=== PATIENT | male | born 1960 | race Hispanic/Latino ===

== ENCOUNTER 2019-08-19 10:27 | Emergency (ER) | payer SELFPAY ==
[2019-08-19 10:40] VITALS: BP 138/77
--- NOTE | 2019-08-19 13:55 | Event Note ---
ED Screening Note Date of service: 08/19/19 Time: 13:51 ED Screening Note: This is a 58 y.o. M. that presents to the ER with pain from left shoulder blade to left chest. Patient went to [facility] and diagnosed with shingles. States he was sent here because WBCs 27. PMH of Diabetes type 1 and CAD. This initial assessment/diagnostic orders/clinical plan/treatment(s) is/are subject to change based on patients health status, clinical progression and re- assessment by fellow clinical providers in the ED. Further treatment and workup at subsequent clinical providers discretion. Patient/guardian urged not to elope from the ED as their condition may be serious if not clinically assessed and managed. Initial orders include: Accucheck 290
== END 2019-08-19 14:30 | disposition left against medical advice (07) ==
LOC: ED 10:27
DX: B02.8 Zoster with other complications (principal); Z53.21 Procedure and treatment not carried out due to patient leaving prior to being seen by health care provider
CPT/HCPCS: 82962

== ENCOUNTER 2019-08-23 12:14 | Inpatient (IN) | payer OTHER ==
--- NOTE | 2019-08-23 12:27 | Event Note ---
ED Screening Note Date of service: 08/23/19 Time: 12:22 ED Screening Note: 58 y o male sent from clinic for generalized pain with elevated wbc and fever no fever in triage took antivirals 08/06/19- WBC 27 This initial assessment/diagnostic orders/clinical plan/treatment(s) is/are subject to change based on patients health status, clinical progression and re- assessment by fellow clinical providers in the ED. Further treatment and workup at subsequent clinical providers discretion. Patient/guardian urged not to elope from the ED as their condition may be serious if not clinically assessed and managed. Initial orders include: labs
[2019-08-23 12:54] LABS: Hematocrit 41.7 % (35.5-45.6); Hemoglobin 14.1 gm/dl (11.8-15.2); Mean Corpuscular HGB Conc 34 % (32-34); Mean Corpuscular Volume 99 fl (84-94); Platelet Count 767 K/mm3 (140-440); Red Blood Count 4.22 M/mm3 (3.65-5.03); Red Cell Distribution Width 15.3 % (13.2-15.2)
[2019-08-23 13:58] LABS: Alanine Aminotransferase 51 units/L (7-56); Albumin 3.9 g/dL (3.9-5); BUN/Creatinine Ratio 16; Blood Urea Nitrogen 11 mg/dL (9-20); Calcium 9.4 mg/dL (8.4-10.2); Hemolysis Index 10
[2019-08-23 14:51] LABS: Basophils % (Manual) 0 % (0.0-1.8); Eosinophils % (Manual) 0 % (0.0-4.3); Total Cells Counted 100
[2019-08-23 14:52] LABS: Anisocytosis Few; Giant Platelets Rare; Large Platelets Rare; Platelet Clumps Rare; Platelet Estimate Consistent w Auto; Poikilocytosis Few
[2019-08-23 15:33] LABS: Bilirubin,Urine NEG (Negative); Blood,Urine NEG (Negative); Color,Urine Yellow (Yellow); Hyaline Casts,Urine 2 /LPF; Protein,Urine <15 mg/dL mg/dL (Negative); Urobilinogen,Urine < 2.0 mg/dL (<2.0)
--- NOTE | 2019-08-23 16:22 | Emergency Department Report ---
ED Recheck HPI - General Chief Complaint: Pain General Stated Complaint: ABN LAB/LT SIDE PAIN Time Seen by Provider: 08/23/19 16:15 Source: patient Mode of arrival: Ambulatory Limitations: Physical Limitation - History of Present Illness Initial Comments: Patient is a 58-year-old male presents to emergency room with complaints of abnormal labs. Patient was sent here by his primary care for a elevated white blood cell count at 27.1. Patient states he had his labs drawn on August 05. Patient states he just received a call 3 days ago. Patient denies any chest pain. Patient denies headache. Patient complains of left posterior arm pain over the left tricep. Patient states his tricep pain has been going on for 3 months. Patient states his abnormal labs are a new finding. Patient states his arm pain is a 10 out of 10. Patient states the arm pain is not radiating. Patient states it's a burning sensation. MD Complaint: abnormal lab -: Sudden Returns Today for: CBOAL Symptoms Since Prior Visit: no new symptoms Context: called for abnorm lab res Associated Symptoms: none - Related Data Home Medications Medication Instructions Recorded Confirmed Last Taken Aspirin [Aspirin BABY CHEW TAB] 81 mg PO QDAY 08/23/19 08/23/19 Unknown Clopidogrel [Plavix] 75 mg PO QDAY 08/23/19 08/23/19 Unknown Gabapentin 300 mg PO TID 08/23/19 08/23/19 Unknown Insulin Detemir 100 units IM BID 08/23/19 08/23/19 Unknown Insulin NPH Human Isophane 100 units IM BID 08/23/19 08/23/19 Unknown Insulin Regular, Human 100 units IM TID 08/23/19 08/23/19 Unknown Metoprolol Tartrate 50 mg PO BID 08/23/19 08/23/19 Unknown Nitroglycerin 0.6 mg SUBLINGUAL PRN 08/23/19 08/23/19 Unknown Allergies Allergy/AdvReac Type Severity Reaction Status Date / Time [id number] Reductase AdvReac Unknown Verified 08/23/19 12:15 Inhibitor ED Review of Systems ROS: Stated complaint: ABN LAB/LT SIDE PAIN Other details as noted in HPI Constitutional: denies: chills, fever Eyes: denies: eye pain, eye discharge, vision change ENT: denies: ear pain, throat pain Respiratory: denies: cough, shortness of breath, wheezing Cardiovascular: denies: chest pain, palpitations Endocrine: no symptoms reported Gastrointestinal: denies: abdominal pain, nausea, diarrhea Genitourinary: denies: urgency, dysuria Musculoskeletal: denies: back pain, joint swelling, arthralgia Skin: denies: rash, lesions Neurological: denies: headache, weakness, paresthesias Psychiatric: denies: anxiety, depression Hematological/Lymphatic: denies: easy bleeding, easy bruising ED Past Medical Hx - Past Medical History Previous Medical History?: Yes Hx Diabetes: Yes Additional medical history: CAD - Surgical History Past Surgical History?: Yes Hx Open Heart Surgery: Yes - Family History Family history: no significant - Social History Smoking Status: Current Every Day Smoker Substance Use Type: Alcohol - Medications Home Medications: Home Medications Medication Instructions Recorded Confirmed Last Taken Type Aspirin [Aspirin BABY CHEW TAB] 81 mg PO QDAY 08/23/19 08/23/19 Unknown History Clopidogrel [Plavix] 75 mg PO QDAY 08/23/19 08/23/19 Unknown History Gabapentin 300 mg PO TID 08/23/19 08/23/19 Unknown History Insulin Detemir 100 units IM BID 08/23/19 08/23/19 Unknown History Insulin NPH Human Isophane 100 units IM BID 08/23/19 08/23/19 Unknown History Insulin Regular, Human 100 units IM TID 08/23/19 08/23/19 Unknown History Metoprolol Tartrate 50 mg PO BID 08/23/19 08/23/19 Unknown History Nitroglycerin 0.6 mg SUBLINGUAL PRN 08/23/19 08/23/19 Unknown History ED Physical Exam - General Limitations: Physical Limitation General appearance: alert, in no apparent distress - Head Head exam: Present: atraumatic, normocephalic - Eye Eye exam: Present: normal appearance - ENT ENT exam: Present: mucous membranes moist - Neck Neck exam: Present: normal inspection - Respiratory Respiratory exam: Present: normal lung sounds bilaterally. Absent: respiratory distress - Cardiovascular Cardiovascular Exam: Present: regular rate, normal rhythm. Absent: systolic murmur, diastolic murmur, rubs, gallop - GI/Abdominal GI/Abdominal exam: Present: soft, normal bowel sounds - Rectal Rectal exam: Present: deferred - Extremities Exam Extremities exam: Present: normal inspection, tenderness (tenderness over left tricep. No deformity noted.) - Back Exam Back exam: Present: normal inspection - Neurological Exam Neurological exam: Present: alert, oriented X3 - Psychiatric Psychiatric exam: Present: normal affect, normal mood - Skin Skin exam: Present: warm, dry, intact, normal color. Absent: rash ED Course Vital Signs 08/23/19 12:22 Temperature 98.5 F Pulse Rate 86 Respiratory 22 Rate Blood Pressure 149/66 O2 Sat by Pulse 98 Oximetry - Reevaluation(s) Reevaluation #1: I discussed all results with patient. I discussed Medicare patient. Patient agrees with plan of care and admission. Patient admitted to the hospitalist service. 08/23/19 17:33 - Consultations Consultation #1: Hematology paged 08/23/19 16:22 I discussed the case with rouge miller, Dr. Andersen. Patient admitted to the hospitalist service. Dr. Andersen wants a pathology peripheral smear, LDH and uric acid ordered 08/23/19 17:33 Consultation #2: Hospitalist consulted. Hospitalist admit patient. Bridging orders placed. 08/23/19 17:32 ED Recheck MDM - Core Measures AMI Core Measures Followed: Yes Measure Exclusions: not indicated - Differential Diagnosis Recheck of Abnormal Lab, Admission for Abnormal [place] abnormal blood test. Leukemia, - Medical Decision Making Patient is a 58-year-old male Emergency with abnormal CBC. Patient found to have a further elevated WBC. Patient's original blood count from 2 weeks ago was 27 and his WBC today is 34. Patient also found to have a metabolic acidosis most likely secondary to uncontrolled diabetes. Patient admitted to the hospitalist service. Hematology consultation for further management. Recommendation is received from hematology. Critical Care Time: Yes Critical care time in (mins) excluding proc time.: 35 Critical care attestation.: If time is entered above; I have spent that time in minutes in the direct care of this critically ill patient, excluding procedure time. Critical Care Time: 35 minutes ED Disposition Clinical Impression: Chronic pain of left upper extremity, Metabolic acidosis, Hyponatremia, Hyperglycemia Elevated white blood cell count, unspecified Qualifiers: Leukocytosis type: unspecified Qualified Code(s): D72.829 - Elevated white blood cell count, unspecified Disposition: OP ADMIT IP TO THIS HOSP Is pt being admited?: Yes Does the pt Need Aspirin: No Condition: Critical Time of Disposition: 17:37
[2019-08-23] MEDS ORDERED: ONDANSETRON 4 MG/2 ML INJ IV PRN (17:58)
[2019-08-23] MEDS ORDERED: ACETAMINOPHEN 325 MG TAB PO PRN (17:58)
[2019-08-23 18:12] LABS: Uric Acid 3.2 mg/dL (3.5-7.6)
--- NOTE | 2019-08-23 19:27 | History and Physical Report ---
History of Present Illness Date of examination: 08/23/19 Date of admission: 08/23/2019 Chief complaint: High white blood cell count for a few days. History of present illness: 58-year-old male with history of diabetes for about 30 years on high- dose insulin sent from the urgent care for high white count of 27,000. Today though the white count is 33,800. Patient had labs drawn on August 05. Patient is sooner call 3 days ago about his White blood cell count. No fever or cough present. No dysuria. Patient is a left upper arm pain for the last 3 months. No focal signs of infection. Patient has of insulin- dependent diabetes hypertension peripheral neuropathy and coronary artery disease. The pain in the left arm is about 6 on a scale of 1-10. No shortness of breath. Past Medical History Previous Medical History?: Yes Diabetes: Yes CAD HTN Surgical History Past Surgical History?: Yes Open Heart Surgery: Yes Family History Family history: no significant Social History Smoking Status: Current Every Day Smoker Alcohol occasionally Medications Home Medications: Home Medications Medication Instructions Recorded Confirmed Last Taken Type Aspirin [Aspirin BABY CHEW TAB] 81 mg PO QDAY 08/23/19 08/23/19 Unknown History Clopidogrel [Plavix] 75 mg PO QDAY 08/23/19 08/23/19 Unknown History Gabapentin 300 mg PO TID 08/23/19 08/23/19 Unknown History Insulin Detemir 100 units IM BID 08/23/19 08/23/19 Unknown History Insulin NPH Human Isophane 100 units IM BID 08/23/19 08/23/19 Unknown History Insulin Regular, Human 100 units IM TID 08/23/19 08/23/19 Unknown History Metoprolol Tartrate 50 mg PO BID 08/23/19 08/23/19 Unknown History Nitroglycerin 0.6 mg SUBLINGUAL PRN 08/23/19 08/23/19 Unknown History Medications and Allergies Allergies Allergy/AdvReac Type Severity Reaction Status Date / Time [id number] Reductase AdvReac Unknown Verified 08/23/19 12:15 Inhibitor Home Medications Medication Instructions Recorded Confirmed Last Taken Type Aspirin [Aspirin BABY CHEW TAB] 81 mg PO QDAY 08/23/19 08/23/19 Unknown History Clopidogrel [Plavix] 75 mg PO QDAY 08/23/19 08/23/19 Unknown History Gabapentin 300 mg PO TID 08/23/19 08/23/19 Unknown History Insulin Detemir 100 units IM BID 08/23/19 08/23/19 Unknown History Insulin NPH Human Isophane 100 units IM BID 08/23/19 08/23/19 Unknown History Insulin Regular, Human 100 units IM TID 08/23/19 08/23/19 Unknown History Metoprolol Tartrate 50 mg PO BID 08/23/19 08/23/19 Unknown History Nitroglycerin 0.6 mg SUBLINGUAL PRN 08/23/19 08/23/19 Unknown History Active Meds: Active Medications Acetaminophen (Tylenol) 650 mg PO Q4H PRN PRN Reason: Pain MILD(1-3)/Fever >100.5/LOPEZ Aspirin (Baby Aspirin) 81 mg PO QDAY [facility] Clopidogrel Bisulfate (Plavix) 75 mg PO QDAY [facility] Hydromorphone HCl (Dilaudid) 0.5 mg IV Q3H PRN PRN Reason: Pain , Severe (7-10) Sodium Chloride (Nacl 0.9% 1000 Ml) 1,000 mls @ 75 mls/hr IV DIRECT MARIBEL Stop: 08/24/19 11:00 Insulin Human Isoph/Insulin Regular (Humulin 70/30) 80 unit SUB-Q BIDDIAB [facility] Insulin Human Lispro (Humalog) 0 unit SUB-Q ONCE PRN; Protocol PRN Reason: Hyperglycemia Miscellaneous Medication (Gabapentin) 300 mg PO TID [facility] Miscellaneous Medication (Metoprolol Tartrate) 50 mg PO BID [facility] Ondansetron HCl (Zofran) 4 mg IV Q8H PRN PRN Reason: Nausea And Vomiting Oxycodone/Acetaminophen (Percocet 5/325) 1 tab PO Q6H PRN PRN Reason: Pain, Moderate (4-6) Sodium Chloride (Sodium Chloride Flush Syringe 10 Ml) 10 ml IV BID [facility] Sodium Chloride (Sodium Chloride Flush Syringe 10 Ml) 10 ml IV PRN PRN PRN Reason: LINE FLUSH Review of Systems All systems: negative Constitutional: fatigue, no weight loss, no weight gain, no fever, no chills Ears, nose, mouth and throat: no ear pain, no ear discharge, no tinnitis, no decreased hearing Cardiovascular: no chest pain, no orthopnea, no rapid/irregular heart beat, no edema, no syncope, no lightheadedness, no shortness of breath Respiratory: no cough, no cough with sputum, no excessive sputum, no hemoptysis, no shortness of breath, no dyspnea on exertion Gastrointestinal: no abdominal pain, no nausea, no vomiting, no diarrhea, no constipation Genitourinary Male: no dysuria, no hematuria, no flank pain, no discharge, no urinary frequency, no urinary hesitancy Musculoskeletal: no neck stiffness, no neck pain, no shooting arm pain Integumentary: no rash, no pruritis, no redness, no sores, no wounds, no jaundi ce, no boils, no blisters Neurological: no head injury, no transient paralysis, no paralysis Psychiatric: no anxiety, no memory loss, no change in sleep habits, no sleep disturbances, no insomnia, no hypersomnia Endocrine: no cold intolerance, no heat intolerance, no polyphagia, no excessive thirst, no polydipsia Hematologic/Lymphatic: no easy bruising, no easy bleeding Allergic/Immunologic: no urticaria, no allergic rhinitis, no wheezing Exam - Constitutional Vitals: Temp Pulse Resp BP Pulse Ox 97.6 F 91 H 18 140/79 99 08/23/19 18:38 08/23/19 18:38 08/23/19 18:39 08/23/19 18:38 08/23/19 18:39 General appearance: Present: no acute distress, well-nourished - EENT Eyes: Present: PERRL ENT: hearing intact, clear oral mucosa - Neck Neck: Present: supple, normal ROM - Respiratory Respiratory effort: normal Respiratory: bilateral: CTA - Cardiovascular Heart rate: 78 Rhythm: regular Heart Sounds: Present: S1 & S2. Absent: rub, click - Extremities Extremities: no ischemia, pulses intact, pulses symmetrical, No edema Peripheral Pulses: within normal limits - Abdominal General gastrointestinal: Present: soft, non-tender, non-distended, normal bowel sounds Male genitourinary: Present: normal - Integumentary Integumentary: Present: clear, warm, dry - Musculoskeletal Musculoskeletal: gait normal, strength equal bilaterally - Psychiatric Psychiatric: appropriate mood/affect, intact judgment & insight - Neurologic Neurologic: CNII-XII intact, moves all extremities Results - Labs CBC & Chem 7: 08/23/19 12:30 08/23/19 12:30 Labs: Laboratory Last Values WBC 33.8 K/mm3 (4.5-11.0) H 08/23/19 12:30 RBC 4.22 M/mm3 (3.65-5.03) 08/23/19 12:30 Hgb 14.1 gm/dl (11.8-15.2) 08/23/19 12:30 Hct 41.7 % (35.5-45.6) 08/23/19 12:30 MCV 99 fl (84-94) H 08/23/19 12:30 MCH 33 pg (28-32) H 08/23/19 12:30 MCHC 34 % (32-34) 08/23/19 12:30 RDW 15.3 % (13.2-15.2) H 08/23/19 12:30 Plt Count 767 K/mm3 (140-440) H 08/23/19 12:30 Add Manual Diff Complete 08/23/19 12:30 Total Counted 100 08/23/19 12:30 Seg Neuts % (Manual) 93.0 % (40.0-70.0) H 08/23/19 12:30 Band Neutrophils % 0 % 08/23/19 12:30 Lymphocytes % (Manual) 5.0 % (13.4-35.0) L 08/23/19 12:30 Reactive Lymphs % (Man) 0 % 08/23/19 12:30 Monocytes % (Manual) 1.0 % (0.0-7.3) 08/23/19 12:30 Eosinophils % (Manual) 0 % (0.0-4.3) 08/23/19 12:30 Basophils % (Manual) 0 % (0.0-1.8) 08/23/19 12:30 Metamyelocytes % 1.0 % 08/23/19 12:30 Myelocytes % 0 % 08/23/19 12:30 Promyelocytes % 0 % 08/23/19 12:30 Blast Cells % 0 % 08/23/19 12:30 Nucleated RBC % Not Reportable 08/23/19 12:30 Seg Neutrophils # Man 31.4 K/mm3 (1.8-7.7) H 08/23/19 12:30 Band Neutrophils # 0.0 K/mm3 08/23/19 12:30 Lymphocytes # (Manual) 1.7 K/mm3 (1.2-5.4) 08/23/19 12:30 Abs React Lymphs (Man) 0.0 K/mm3 08/23/19 12:30 Monocytes # (Manual) 0.3 K/mm3 (0.0-0.8) 08/23/19 12:30 Eosinophils # (Manual) 0.0 K/mm3 (0.0-0.4) 08/23/19 12:30 Basophils # (Manual) 0.0 K/mm3 (0.0-0.1) 08/23/19 12:30 Metamyelocytes # 0.3 K/mm3 08/23/19 12:30 Myelocytes # 0.0 K/mm3 08/23/19 12:30 Promyelocytes # 0.0 K/mm3 08/23/19 12:30 Blast Cells # 0.0 K/mm3 08/23/19 12:30 Hypersegmented Neuts Not Reportable 08/23/19 12:30 Hyposegmented Neuts Not Reportable 08/23/19 12:30 Hypogranular Neuts Not Reportable 08/23/19 12:30 Smudge Cells Not Reportable 08/23/19 12:30 Toxic Granulation Not Reportable 08/23/19 12:30 Toxic Vacuolation Not Reportable 08/23/19 12:30 Dohle Bodies Not Reportable 08/23/19 12:30 Pelger-Huet Anomaly Not Reportable 08/23/19 12:30 Matti Rods Not Reportable 08/23/19 12:30 Platelet Estimate Consistent w auto 08/23/19 12:30 Clumped Platelets Rare 08/23/19 12:30 Plt Clumps, EDTA Not Reportable 08/23/19 12:30 Large Platelets Rare 08/23/19 12:30 Giant Platelets Rare 08/23/19 12:30 Platelet Satelliting Not Reportable 08/23/19 12:30 Plt Morphology Comment Not Reportable 08/23/19 12:30 RBC Morphology Not Reportable 08/23/19 12:30 Dimorphic RBCs Not Reportable 08/23/19 12:30 Polychromasia Not Reportable 08/23/19 12:30 Hypochromasia Not Reportable 08/23/19 12:30 Poikilocytosis Few 08/23/19 12:30 Anisocytosis Few 08/23/19 12:30 Microcytosis Not Reportable 08/23/19 12:30 Macrocytosis Not Reportable 08/23/19 12:30 Spherocytes Not Reportable 08/23/19 12:30 Pappenheimer Bodies Not Reportable 08/23/19 12:30 Sickle Cells Not Reportable 08/23/19 12:30 Target Cells Not Reportable 08/23/19 12:30 Tear Drop Cells Not Reportable 08/23/19 12:30 Ovalocytes Not Reportable 08/23/19 12:30 Helmet Cells Not Reportable 08/23/19 12:30 Christy-[place] Bodies Not Reportable 08/23/19 12:30 [place] Rings Not Reportable 08/23/19 12:30 [place] Cells Not Reportable 08/23/19 12:30 Bite Cells Not Reportable 08/23/19 12:30 Crenated Cell Not Reportable 08/23/19 12:30 Elliptocytes Not Reportable 08/23/19 12:30 Acanthocytes (Spur) Not Reportable 08/23/19 12:30 Rouleaux Not Reportable 08/23/19 12:30 Hemoglobin C Crystals Not Reportable 08/23/19 12:30 Schistocytes Not Reportable 08/23/19 12:30 Malaria parasites Not Reportable 08/23/19 12:30 [place] Bodies Not Reportable 08/23/19 12:30 Hem Pathologist Commnt Sent to pathology 08/23/19 12:30 Sodium 125 mmol/L (137-145) L 08/23/19 12:30 Potassium 5.0 mmol/L (3.6-5.0) 08/23/19 12:30 Chloride 88.4 mmol/L (98-107) L 08/23/19 12:30 Carbon Dioxide 19 mmol/L (22-30) L 08/23/19 12:30 Anion Gap 23 mmol/L 08/23/19 12:30 BUN 11 mg/dL (9-20) 08/23/19 12:30 Creatinine 0.7 mg/dL (0.8-1.5) L 08/23/19 12:30 Estimated GFR > 60 ml/min 08/23/19 12:30 BUN/Creatinine Ratio 16 % 08/23/19 12:30 Glucose 358 mg/dL (75-100) H 08/23/19 12:30 Hemoglobin A1c 8.4 % (4-6) H 08/23/19 17:59 Uric Acid 3.2 mg/dL (3.5-7.6) L 08/23/19 12:30 Calcium 9.4 mg/dL (8.4-10.2) 08/23/19 12:30 Total Bilirubin 0.30 mg/dL (0.1-1.2) 08/23/19 12:30 AST 32 units/L (5-40) 08/23/19 12:30 ALT 51 units/L (7-56) 08/23/19 12:30 Alkaline Phosphatase 237 units/L (35-129) H 08/23/19 12:30 Lactate Dehydrogenase 194 units/L (91-180) H 08/23/19 12:30 Total Protein 7.7 g/dL (6.3-8.2) 08/23/19 12:30 Albumin 3.9 g/dL (3.9-5) 08/23/19 12:30 Albumin/Globulin Ratio 1.0 % 08/23/19 12:30 Urine Color Yellow (Yellow) 08/23/19 15:02 Urine Turbidity Clear (Clear) 08/23/19 15:02 Urine pH 5.0 (5.0-7.0) 08/23/19 15:02 Ur Specific [place] 1.022 (1.003-1.030) 08/23/19 15:02 Urine Protein <15 mg/dl mg/dL (Negative) 08/23/19 15:02 Urine Glucose (UA) >=500 mg/dL (Negative) 08/23/19 15:02 Urine Ketones 80 mg/dL (Negative) 08/23/19 15:02 Urine Blood Neg (Negative) 08/23/19 15:02 Urine Nitrite Neg (Negative) 08/23/19 15:02 Urine Bilirubin Neg (Negative) 08/23/19 15:02 Urine Urobilinogen < 2.0 mg/dL (<2.0) 08/23/19 15:02 Ur Leukocyte Esterase Neg (Negative) 08/23/19 15:02 Urine WBC (Auto) 1.0 /HPF (0.0-6.0) 08/23/19 15:02 Urine RBC (Auto) 4.0 /HPF (0.0-6.0) 08/23/19 15:02 U Epithel Cells (Auto) < 1.0 /HPF (0-13.0) 08/23/19 15:02 Hyaline Casts 2 /LPF 08/23/19 15:02 - Imaging and Cardiology Chest x-ray: report reviewed Assessment and Plan Advance Directives: Yes (full code) VTE prophylaxis?: Chemical Plan of care discussed with patient/family: Yes - Patient Problems (1) Hyperosmolar non-ketotic state in patient with type 2 diabetes mellitus Current Visit: Yes Status: Acute Plan to address problem: Patient started on insulin 7030 80 units twice a day. Patient normally takes 100 units twice a day at home in the form of long-acting insulin. Because of the poor by mouth intake dosage was increased to 80 twice a day High-dose sliding scale coverage before meals and at bedtime with regular insulin Check hemoglobin A1c Patient is to be on 7030 Humulin insulin and the dose to be adjusted by the time of discharge. (2) Hyponatremia Current Visit: Yes Status: Acute Plan to address problem: Secondary to high blood glucose levels Should correct with the correction of glucose (3) Metabolic acidosis Current Visit: Yes Status: Acute Plan to address problem: Mild Should correct with IV fluids and high-dose insulin sliding scale coverage (4) Leukocytosis, unspecified Current Visit: Yes Status: Chronic Plan to address problem: Appears to be chronic Differential diagnoses of demargination Sepsis unlikely Will initiate IV ceftriaxone. Blood smear ordered LDH ordered (5) Hypertension Current Visit: Yes Status: Chronic Qualifiers: Hypertension type: essential hypertension Qualified Code(s): I10 - Essential (primary) hypertension Plan to address problem: Continue metoprolol (6) Coronary artery disease Current Visit: Yes Status: Chronic Qualifiers: Coronary Disease-Associated Artery/Lesion type: [place] artery [place] vs. transplanted heart: [place] heart Plan to address problem: Continue Plavix 75 mg once a day (7) DVT prophylaxis Current Visit: Yes Status: Acute Plan to address problem: On heparin 5000 every 12 and GI prophylaxis
[2019-08-23] MEDS: ASPIRIN 81 MG TAB CHEW PO SCH (19:28)
[2019-08-23] MEDS: CLOPIDOGREL 75 MG TAB PO SCH (19:29)
[2019-08-23] MEDS ORDERED: NON-FORMULARY EACH (Gabapentin 300 MG) PO SCH (20:00)
[2019-08-23] MEDS: oxyCODONE /ACETAMINOPHEN 5-325MG TAB PO PRN (20:34)
[2019-08-23] MEDS: GABAPENTIN 300 MG CAP PO SCH (20:35)
[2019-08-23] MEDS: SODIUM CHLORIDE 0.9% 1000 ML 1,000 ML IV SCH (21:20)
[2019-08-23] MEDS ORDERED: METOPROLOL TARTRATE 50 MG PO SCH (22:00)
[2019-08-23] MEDS: cefTRIAXone/NS 2 GM/100 ML 2 GM/100 ML BAG IV SCH (22:31)
[2019-08-23] MEDS: INSULIN LISPRO 100 UNIT/ML SUB-Q PRN (22:35)
[2019-08-23] MEDS: METOPROLOL TARTRATE 50 MG TAB PO SCH (22:59)
[2019-08-24] MEDS: HYDROmorphone 1 MG/1 ML INJ IV PRN ×2 (02:08→11:23)
[2019-08-24] MEDS: SODIUM CHLORIDE 0.9% 1000 ML 1,000 ML IV SCH (06:23)
[2019-08-24 07:41] LABS: Hematocrit 36.7 % (35.5-45.6); Hemoglobin 12.6 gm/dl (11.8-15.2); Mean Corpuscular HGB Conc 34 % (32-34); Mean Corpuscular Volume 98 fl (84-94); Platelet Count 657 K/mm3 (140-440); Red Blood Count 3.74 M/mm3 (3.65-5.03); Red Cell Distribution Width 15.4 % (13.2-15.2)
[2019-08-24 07:52] LABS: Alanine Aminotransferase 34 units/L (7-56); Albumin 3.4 g/dL (3.9-5); BUN/Creatinine Ratio 16; Blood Urea Nitrogen 8 mg/dL (9-20); Calcium 8.5 mg/dL (8.4-10.2); Hemolysis Index 0
[2019-08-24] MEDS ORDERED: INSULIN NPH/REGULAR 70/30 INJ SUB-Q SCH (08:00)
[2019-08-24] MEDS: GABAPENTIN 300 MG CAP PO SCH ×3 (08:52→20:27)
[2019-08-24] MEDS: INSULIN NPH/REGULAR 70/30 INJ SUB-Q SCH ×2 (08:52→17:19)
[2019-08-24] MEDS: oxyCODONE /ACETAMINOPHEN 5-325MG TAB PO PRN ×3 (08:56→21:10)
[2019-08-24 10:57] LABS: Anisocytosis Few; Eosinophils % (Manual) 0 % (0.0-4.3); Macrocytosis Few; Platelet Estimate Consistent w Auto; Total Cells Counted 100
[2019-08-24] MEDS: METOPROLOL TARTRATE 50 MG TAB PO SCH ×2 (11:21→23:25)
[2019-08-24] MEDS: ASPIRIN 81 MG TAB CHEW PO SCH (11:21)
[2019-08-24] MEDS: CLOPIDOGREL 75 MG TAB PO SCH (11:21)
[2019-08-24] MEDS: HEPARIN 5,000 UNIT/1 ML VIAL SUB-Q SCH ×2 (11:22→21:10)
[2019-08-24] MEDS: INSULIN LISPRO 100 UNIT/ML SUB-Q PRN ×2 (12:47→17:19)
--- NOTE | 2019-08-24 17:30 | Progress Note ---
Assessment and Plan - Patient Problems (1) Hyperglycemia Current Visit: Yes Status: Acute Plan to address problem: Glycemia secondary to noncompliance uncontrolled diabetes. We'll place patient back on insulin 70 3080 units twice a day. (2) Hyperosmolar non-ketotic state in patient with type 2 diabetes mellitus Current Visit: Yes Status: Acute Plan to address problem: Longer in nonketotic state. Patient receiving insulin 80 units twice a day of 7030 follow accordingly. (3) Hyponatremia Current Visit: Yes Status: Acute Plan to address problem: Hyponatremia secondary to hyperglycemia. (4) Coronary artery disease Current Visit: Yes Status: Chronic Qualifiers: Coronary Disease-Associated Artery/Lesion type: nondalton artery [place] vs. transplanted heart: nondalton heart Plan to address problem: Present patient remains chest pain-free. (5) Leukocytosis, unspecified Current Visit: Yes Status: Chronic (6) Leukocytosis Current Visit: Yes Status: Acute Plan to address problem: Exact etiology unknown. Awaiting hematology oncology consult. History Interval history: Patient 58-year-old with history of coronary disease, diabetes, peripheral vascular disease, neuropathy presents with a leukocytosis of 27 on initial presentation now has gone up to 33. No clear indication of etiology. Hematology oncology to follow up. Hospitalist Physical - Constitutional Vitals: Temp Pulse Resp BP Pulse Ox 97.5 F L 96 H 18 121/71 95 08/24/19 11:37 08/24/19 11:37 08/24/19 11:37 08/24/19 11:37 08/24/19 11:37 General appearance: Present: no acute distress, well-nourished - EENT Eyes: Present: PERRL, EOM intact ENT: hearing intact, clear oral mucosa, dentition normal - Neck Neck: Present: supple, normal ROM - Respiratory Respiratory: bilateral: CTA - Cardiovascular Heart Sounds: Present: S1 & S2 - Extremities Extremities: pulses intact, No edema, normal temperature, normal color Peripheral Pulses: within normal limits - Abdominal General gastrointestinal: soft, non-tender, tender, normal bowel sounds, no hepatomegaly, no splenomegaly - Integumentary Integumentary: Present: clear, warm, dry, erythema - Psychiatric Psychiatric: intact judgment & insight, memory intact - Neurologic Neurologic: CNII-XII intact, focal deficits, moves all extremities Results - Labs CBC & Chem 7: 08/24/19 06:37 08/24/19 06:37 Labs: Laboratory Last Values WBC 28.0 K/mm3 (4.5-11.0) H 08/24/19 06:37 RBC 3.74 M/mm3 (3.65-5.03) 08/24/19 06:37 Hgb 12.6 gm/dl (11.8-15.2) 08/24/19 06:37 Hct 36.7 % (35.5-45.6) 08/24/19 06:37 MCV 98 fl (84-94) H 08/24/19 06:37 MCH 34 pg (28-32) H 08/24/19 06:37 MCHC 34 % (32-34) 08/24/19 06:37 RDW 15.4 % (13.2-15.2) H 08/24/19 06:37 Plt Count 657 K/mm3 (140-440) H 08/24/19 06:37 Lymph % (Auto) Assistant Project Manager 08/24/19 06:37 [place] % (Auto) Assistant Project Manager 08/24/19 06:37 Eos % (Auto) Assistant Project Manager 08/24/19 06:37 Baso % (Auto) Assistant Project Manager 08/24/19 06:37 Lymph # Assistant Project Manager 08/24/19 06:37 [place] # Assistant Project Manager 08/24/19 06:37 Eos # Assistant Project Manager 08/24/19 06:37 Baso # Assistant Project Manager 08/24/19 06:37 Add Manual Diff Complete 08/24/19 06:37 Total Counted 100 08/24/19 06:37 Seg Neutrophils % Assistant Project Manager 08/24/19 06:37 Seg Neuts % (Manual) 89.0 % (40.0-70.0) H 08/24/19 06:37 Band Neutrophils % 0 % 08/24/19 06:37 Lymphocytes % (Manual) 5.0 % (13.4-35.0) L 08/24/19 06:37 Reactive Lymphs % (Man) 0 % 08/24/19 06:37 Monocytes % (Manual) 5.0 % (0.0-7.3) 08/24/19 06:37 Eosinophils % (Manual) 0 % (0.0-4.3) 08/24/19 06:37 Basophils % (Manual) 1.0 % (0.0-1.8) 08/24/19 06:37 Metamyelocytes % 0 % 08/24/19 06:37 Myelocytes % 0 % 08/24/19 06:37 Promyelocytes % 0 % 08/24/19 06:37 Blast Cells % 0 % 08/24/19 06:37 Nucleated RBC % Not Reportable 08/24/19 06:37 Seg Neutrophils # Assistant Project Manager 08/24/19 06:37 Seg Neutrophils # Man 24.9 K/mm3 (1.8-7.7) H 08/24/19 06:37 Band Neutrophils # 0.0 K/mm3 08/24/19 06:37 Lymphocytes # (Manual) 1.4 K/mm3 (1.2-5.4) 08/24/19 06:37 Abs React Lymphs (Man) 0.0 K/mm3 08/24/19 06:37 Monocytes # (Manual) 1.4 K/mm3 (0.0-0.8) H 08/24/19 06:37 Eosinophils # (Manual) 0.0 K/mm3 (0.0-0.4) 08/24/19 06:37 Basophils # (Manual) 0.3 K/mm3 (0.0-0.1) H 08/24/19 06:37 Metamyelocytes # 0.0 K/mm3 08/24/19 06:37 Myelocytes # 0.0 K/mm3 08/24/19 06:37 Promyelocytes # 0.0 K/mm3 08/24/19 06:37 Blast Cells # 0.0 K/mm3 08/24/19 06:37 WBC Morphology Not Reportable 08/24/19 06:37 Hypersegmented Neuts Not Reportable 08/24/19 06:37 Hyposegmented Neuts Not Reportable 08/24/19 06:37 Hypogranular Neuts Not Reportable 08/24/19 06:37 Smudge Cells Not Reportable 08/24/19 06:37 Toxic Granulation Not Reportable 08/24/19 06:37 Toxic Vacuolation Not Reportable 08/24/19 06:37 Dohle Bodies Not Reportable 08/24/19 06:37 Pelger-Huet Anomaly Not Reportable 08/24/19 06:37 Matti Rods Not Reportable 08/24/19 06:37 Platelet Estimate Consistent w auto 08/24/19 06:37 Clumped Platelets Not Reportable 08/24/19 06:37 Plt Clumps, EDTA Not Reportable 08/24/19 06:37 Large Platelets Not Reportable 08/24/19 06:37 Giant Platelets Not Reportable 08/24/19 06:37 Platelet Satelliting Not Reportable 08/24/19 06:37 Plt Morphology Comment Not Reportable 08/24/19 06:37 RBC Morphology Not Reportable 08/24/19 06:37 Dimorphic RBCs Not Reportable 08/24/19 06:37 Polychromasia Not Reportable 08/24/19 06:37 Hypochromasia Not Reportable 08/24/19 06:37 Poikilocytosis Not Reportable 08/24/19 06:37 Anisocytosis Few 08/24/19 06:37 Microcytosis Not Reportable 08/24/19 06:37 Macrocytosis Few 08/24/19 06:37 Spherocytes Not Reportable 08/24/19 06:37 Pappenheimer Bodies Not Reportable 08/24/19 06:37 Sickle Cells Not Reportable 08/24/19 06:37 Target Cells Not Reportable 08/24/19 06:37 Tear Drop Cells Not Reportable 08/24/19 06:37 Ovalocytes Not Reportable 08/24/19 06:37 Helmet Cells Not Reportable 08/24/19 06:37 Christy-[place] Bodies Not Reportable 08/24/19 06:37 [place] Rings Not Reportable 08/24/19 06:37 Gabby Cells Not Reportable 08/24/19 06:37 Bite Cells Not Reportable 08/24/19 06:37 Crenated Cell Not Reportable 08/24/19 06:37 Elliptocytes Not Reportable 08/24/19 06:37 Acanthocytes (Spur) Not Reportable 08/24/19 06:37 Rouleaux Not Reportable 08/24/19 06:37 Hemoglobin C Crystals Not Reportable 08/24/19 06:37 Schistocytes Not Reportable 08/24/19 06:37 Malaria parasites Not Reportable 08/24/19 06:37 [place]o Bodies Not Reportable 08/24/19 06:37 Hem Pathologist Commnt No 08/24/19 06:37 Sodium 124 mmol/L (137-145) L 08/24/19 06:37 Potassium 4.5 mmol/L (3.6-5.0) 08/24/19 06:37 Chloride 87.7 mmol/L (98-107) L 08/24/19 06:37 Carbon Dioxide 20 mmol/L (22-30) L 08/24/19 06:37 Anion Gap 21 mmol/L 08/24/19 06:37 BUN 8 mg/dL (9-20) L 08/24/19 06:37 Creatinine 0.5 mg/dL (0.8-1.5) L 08/24/19 06:37 Estimated GFR > 60 ml/min 08/24/19 06:37 BUN/Creatinine Ratio 16 % 08/24/19 06:37 Glucose 302 mg/dL (75-100) H 08/24/19 06:37 POC Glucose 191 (70-105) H 08/24/19 16:24 Hemoglobin A1c 8.4 % (4-6) H 08/23/19 17:59 Uric Acid 3.2 mg/dL (3.5-7.6) L 08/23/19 12:30 Calcium 8.5 mg/dL (8.4-10.2) 08/24/19 06:37 Total Bilirubin 0.40 mg/dL (0.1-1.2) 08/24/19 06:37 AST 15 units/L (5-40) 08/24/19 06:37 ALT 34 units/L (7-56) 08/24/19 06:37 Alkaline Phosphatase 202 units/L (35-129) H 08/24/19 06:37 Lactate Dehydrogenase 194 units/L (91-180) H 08/23/19 12:30 Total Protein 6.7 g/dL (6.3-8.2) 08/24/19 06:37 Albumin 3.4 g/dL (3.9-5) L 08/24/19 06:37 Albumin/Globulin Ratio 1.0 % 08/24/19 06:37 Urine Color Yellow (Yellow) 08/23/19 15:02 Urine Turbidity Clear (Clear) 08/23/19 15:02 Urine pH 5.0 (5.0-7.0) 08/23/19 15:02 Ur Specific [place] 1.022 (1.003-1.030) 08/23/19 15:02 Urine Protein <15 mg/dl mg/dL (Negative) 08/23/19 15:02 Urine Glucose (UA) >=500 mg/dL (Negative) 08/23/19 15:02 Urine Ketones 80 mg/dL (Negative) 08/23/19 15:02 Urine Blood Neg (Negative) 08/23/19 15:02 Urine Nitrite Neg (Negative) 08/23/19 15:02 Urine Bilirubin Neg (Negative) 08/23/19 15:02 Urine Urobilinogen < 2.0 mg/dL (<2.0) 08/23/19 15:02 Ur Leukocyte Esterase Neg (Negative) 08/23/19 15:02 Urine WBC (Auto) 1.0 /HPF (0.0-6.0) 08/23/19 15:02 Urine RBC (Auto) 4.0 /HPF (0.0-6.0) 08/23/19 15:02 U Epithel Cells (Auto) < 1.0 /HPF (0-13.0) 08/23/19 15:02 Hyaline Casts 2 /LPF 08/23/19 15:02 Active Medications - Current Medications Current Medications: Generic Name Dose Route Start Last Admin Trade Name Freq PRN Reason Stop Dose Admin Acetaminophen 650 mg 08/23/19 17:58 Tylenol PO Q4H PRN Pain MILD(1-3)/Fever >100.5/LOPEZ Aspirin 81 mg 08/23/19 19:00 08/24/19 11:21 Baby Aspirin PO 81 mg QDAY MARIBEL Administration Clopidogrel Bisulfate 75 mg 08/23/19 19:00 08/24/19 11:21 Plavix PO 75 mg QDAY MARIBEL Administration Gabapentin 300 mg 08/23/19 20:00 08/24/19 14:02 Gabapentin PO 300 mg TID MARIBEL Administration Heparin Sodium (Porcine) 5,000 unit 08/24/19 10:00 08/24/19 11:22 Heparin SUB-Q 5,000 unit Q12HR MARIBEL Administration Hydromorphone HCl 0.5 mg 08/23/19 17:59 08/24/19 11:23 Dilaudid IV 0.5 mg Q3H PRN Administration Pain , Severe (7-10) Ceftriaxone Sodium 2 gm in 100 mls @ 200 mls/hr 08/23/19 21:00 08/23/19 22:31 Rocephin/Ns 2 Gm/100 Ml IV 200 mls/hr Q24H MARIBEL Administration Protocol Insulin Human Isoph/Insulin Regular 80 unit 08/24/19 08:00 08/24/19 17:19 Humulin 70/30 SUB-Q 80 unit BIDDIAB MARIBEL Administration Insulin Human Lispro 0 unit 08/23/19 18:01 08/24/19 17:19 Humalog SUB-Q 3 unit ONCE PRN Administration Hyperglycemia Protocol Metoprolol Tartrate 50 mg 08/23/19 22:00 08/24/19 11:21 Metoprolol PO 50 mg BID MARIBEL Administration Ondansetron HCl 4 mg 08/23/19 17:58 Zofran IV Q8H PRN Nausea And Vomiting Oxycodone/Acetaminophen 1 tab 08/23/19 17:59 08/24/19 17:18 Percocet 5/325 PO 1 tab Q6H PRN Administration Pain, Moderate (4-6) Sodium Chloride 10 ml 08/23/19 22:00 08/24/19 11:22 Sodium Chloride Flush Syringe 10 Ml IV 10 ml BID MARIBEL Administration Sodium Chloride 10 ml 08/23/19 17:58 Sodium Chloride Flush Syringe 10 Ml IV PRN PRN LINE FLUSH
[2019-08-24] MEDS ORDERED: DEXTROSE 50% IN WATER (25GM) 50 ML SYRINGE IV ONE ×2 (21:00→23:00)
[2019-08-24] MEDS: cefTRIAXone/NS 2 GM/100 ML 2 GM/100 ML BAG IV SCH (21:11)
[2019-08-25] MEDS: HYDROmorphone 1 MG/1 ML INJ IV PRN ×2 (03:50→20:56)
[2019-08-25] MEDS: oxyCODONE /ACETAMINOPHEN 5-325MG TAB PO PRN ×2 (06:02→13:28)
[2019-08-25] MEDS ORDERED: DEXTROSE 50% IN WATER (25GM) 50 ML VIAL IV ONE (06:42)
[2019-08-25] MEDS ORDERED: DEXTROSE 50% IN WATER (25GM) 50 ML SYRINGE IV ONE (07:00)
--- NOTE | 2019-08-25 08:44 | Event Note ---
Date: 08/24/19 [id number]
[2019-08-25] MEDS: INSULIN NPH/REGULAR 70/30 INJ SUB-Q SCH ×2 (09:03→16:31)
[2019-08-25] MEDS ORDERED: DEXTROSE 50% IN WATER (25GM) 50 ML SYRINGE IV PRN (09:28)
[2019-08-25] MEDS: CLOPIDOGREL 75 MG TAB PO SCH (09:42)
[2019-08-25] MEDS: ASPIRIN 81 MG TAB CHEW PO SCH (09:42)
[2019-08-25] MEDS: HEPARIN 5,000 UNIT/1 ML VIAL SUB-Q SCH ×2 (09:42→21:17)
[2019-08-25] MEDS: GABAPENTIN 300 MG CAP PO SCH ×3 (09:43→20:40)
[2019-08-25] MEDS: METOPROLOL TARTRATE 50 MG TAB PO SCH ×2 (09:49→21:15)
[2019-08-25] MEDS ORDERED: INSULIN NPH/REGULAR 70/30 INJ SUB-Q ONE (10:00)
--- NOTE | 2019-08-25 10:42 | Consultation ---
REFERRING PHYSICIAN: Dr. Arce. REASON FOR CONSULTATION: Leukocytosis. HISTORY OF PRESENT ILLNESS: I saw the patient, a 58-year-old male in the medical floor. The patient states that he went to an urgent care center. He has a history of diabetes on insulin. White cell count was high. The patient is complaining of left arm pain in the triceps area. A few days ago, he fell down and bumped his nose. At that time, he found a bruise in the left biceps area. At this time, no fever, no vomiting, no diarrhea. No headache. No abdominal pain. No chest pain. PAST MEDICAL HISTORY: Diabetes. SURGICAL HISTORY: Nil. SOCIAL HISTORY: History of smoking present. FAMILY HISTORY: Noncontributory. HOME MEDICATIONS: Includes aspirin, Plavix, insulin. ALLERGIES: STATINS. PHYSICAL EXAMINATION: VITAL SIGNS: Temperature 98, pulse 89, respirations 18, BP 132/69. LABORATORY DATA: White cell 28, hemoglobin 12, MCV 98, platelets 657. Potassium 4.5, creatinine 0.5, calcium 8.5, alkaline phosphatase 202, LDH 194, uric acid 3.2. Under the smears, the lab mentions no toxic granulation. ASSESSMENT AND PLAN: 1. Leukocytosis, predominant neutrophils. This could be reactive. He has history of smoking. Previous stain will guide us. Present smear does not mention any metamyelocytes, myelocytes, or promyelocytes. 2. MCV elevated at 98. 3. Platelet count is high. 4. We will do deficiency investigation and follow the patient in the outpatient setting. 5. Left hand triceps area pain, cause unclear. 6. History of diabetes. 7. History of hyponatremia. 8. Metabolic acidosis. I will follow the patient during inpatient stay. JOB# [id number] NM/NTS
--- NOTE | 2019-08-25 10:58 | Consultation ---
History of Present Illness - Reason for Consult Consult date: 08/25/19 leukocytosis Requesting physician: MARCY WILLS - History of Present Illness 58 y/o male with history of diabetes, hypertension, peripheral neuropathy and coronary artery disease admitted on 08/23/2019 due to abnormal labs - white count of 27,000. Patient reports he fell down 3 months ago and injured his left arm with a large bruise, since then he has been complaining of left upper arm pain for the last 3 months. Pain is burning and 6 of 10 radiates to the axilla and scapular area and does not improve with pain meds. Denies cough, SOB, weight loss, fever, chills, urinary symptoms. In the ED, temp normal, HR 91, WBC 33.8 with 93% segs. Glu 354. A1C 8.4. Creat 0.7. ID consulted for leukocytosis. Review of Systems: Bold if positive, otherwise negative General: fevers, chills, body aches HEENT: visual disturbance, diplopia, eye pain Respiratory: cough, sputum, hemoptysis, shortness of breath Cardiovascular: chest pain, syncope Gastrointestinal: nausea, vomiting, diarrhea, abdominal pain Genitourinary: dysuria, hematuria, flank pain Musculoskeletal: left arm/axilla/scapular pain, neck pain, back pain, joint pain, edema Neurologic: headaches, seizures Hematologic: easy bruising or bleeding Endocrine: night sweats, acute weight loss Skin: rash, jaundice, redness Psychiatric: suicidal, homicidal ideation Medications and Allergies Allergies Allergy/AdvReac Type Severity Reaction Status Date / Time Lmkbbme-[id number]-Pdi Reductase AdvReac Unknown Verified 08/23/19 12:15 Inhibitor Home Medications Medication Instructions Recorded Confirmed Last Taken Type Aspirin [Aspirin BABY CHEW TAB] 81 mg PO QDAY 08/23/19 08/23/19 Unknown History Clopidogrel [Plavix] 75 mg PO QDAY 08/23/19 08/23/19 Unknown History Gabapentin 300 mg PO TID 08/23/19 08/23/19 Unknown History Insulin Detemir 100 units IM BID 08/23/19 08/23/19 Unknown History Insulin NPH Human Isophane 100 units IM BID 08/23/19 08/23/19 Unknown History Insulin Regular, Human 100 units IM TID 08/23/19 08/23/19 Unknown History Metoprolol Tartrate 50 mg PO BID 08/23/19 08/23/19 Unknown History Nitroglycerin 0.6 mg SUBLINGUAL PRN 08/23/19 08/23/19 Unknown History Active Meds: Active Medications Acetaminophen (Tylenol) 650 mg PO Q4H PRN PRN Reason: Pain MILD(1-3)/Fever >100.5/LOPEZ Aspirin (Baby Aspirin) 81 mg PO QDAY [facility] Last Admin: 08/25/19 09:42 Dose: 81 mg Documented by: Clopidogrel Bisulfate (Plavix) 75 mg PO QDAY [facility] Last Admin: 08/25/19 09:42 Dose: 75 mg Documented by: Dextrose (D50w (25gm) Syringe) 50 ml IV Q30MIN PRN; Protocol PRN Reason: Hypoglycemia Gabapentin (Gabapentin) 300 mg PO TID [facility] Last Admin: 08/25/19 09:43 Dose: 300 mg Documented by: Heparin Sodium (Porcine) (Heparin) 5,000 unit SUB-Q Q12HR [facility] Last Admin: 08/25/19 09:42 Dose: 5,000 unit Documented by: Hydromorphone HCl (Dilaudid) 0.5 mg IV Q3H PRN PRN Reason: Pain , Severe (7-10) Last Admin: 08/25/19 03:50 Dose: 0.5 mg Documented by: Ceftriaxone Sodium (Rocephin/Ns 2 Gm/100 Ml) 2 gm in 100 mls @ 200 mls/hr IV Q24H [facility]; Protocol Last Admin: 08/24/19 21:11 Dose: 200 mls/hr Documented by: Insulin Human Isoph/Insulin Regular (Humulin 70/30) 60 unit SUB-Q BIDDIAB [facility] Insulin Human Lispro (Humalog) 0 unit SUB-Q ACHS [facility]; Protocol Metoprolol Tartrate (Metoprolol) 50 mg PO BID [facility] Last Admin: 08/25/19 09:49 Dose: 50 mg Documented by: Ondansetron HCl (Zofran) 4 mg IV Q8H PRN PRN Reason: Nausea And Vomiting Oxycodone/Acetaminophen (Percocet 5/325) 1 tab PO Q6H PRN PRN Reason: Pain, Moderate (4-6) Last Admin: 08/25/19 06:02 Dose: 1 tab Documented by: Sodium Chloride (Sodium Chloride Flush Syringe 10 Ml) 10 ml IV BID [facility] Last Admin: 08/25/19 09:43 Dose: 10 ml Documented by: Sodium Chloride (Sodium Chloride Flush Syringe 10 Ml) 10 ml IV PRN PRN PRN Reason: LINE FLUSH Physical Examination - Physical Exam Narrative exam: Constitutional: Alert, cooperative. No acute distress Head, Ears, Nose: Normocephalic, atraumatic. External ears, nose normal Eyes: Conjunctivae/corneas clear. No icterus. No ptosis. Neck: Supple, no meningeal signs Oral: dentition fair, no thrush Cardiovascular: S1, S2 normal. Respiratory: Good air entry, clear to auscultation bilaterally GI: Soft, non-tender Musculoskeletal: left arm/axilla/scapular tenderness Skin: left axilla cyst no erthema Hem/Lymphatic: No palpable cervical or supraclavicular nodes. No lymphangitis Psych: Mood ok. Affect normal Neurological: Awake, alert, oriented. paraplegic - Constitutional Vitals: Vital Signs Temp Pulse Resp BP Pulse Ox 98.8 F 97 H 20 124/74 89 08/24/19 21:15 08/25/19 05:02 08/25/19 05:02 08/25/19 09:49 08/25/19 05:02 Temperature -Last 24 Hours Temperature 98.8 F Temperature 98.8 F Temperature 97.5 F Results - Labs CBC & Chem 7: 08/24/19 06:37 08/24/19 06:37 Labs: Abnormal lab results 08/24/19 08/24/19 08/24/19 Range/Units 06:37 11:09 16:24 Seg Neuts % (Manual) 89.0 H (40.0-70.0) % Lymphocytes % (Manual) 5.0 L (13.4-35.0) % Seg Neutrophils # Man 24.9 H (1.8-7.7) K/mm3 Monocytes # (Manual) 1.4 H (0.0-0.8) K/mm3 Basophils # (Manual) 0.3 H (0.0-0.1) K/mm3 POC Glucose 361 H 191 H (70-105) 08/24/19 08/24/19 08/25/19 Range/Units 20:47 22:42 06:07 Seg Neuts % (Manual) (40.0-70.0) % Lymphocytes % (Manual) (13.4-35.0) % Seg Neutrophils # Man (1.8-7.7) K/mm3 Monocytes # (Manual) (0.0-0.8) K/mm3 Basophils # (Manual) (0.0-0.1) K/mm3 POC Glucose 48 L 44 L 46 L (70-105) 08/25/19 Range/Units 08:19 Seg Neuts % (Manual) (40.0-70.0) % Lymphocytes % (Manual) (13.4-35.0) % Seg Neutrophils # Man (1.8-7.7) K/mm3 Monocytes # (Manual) (0.0-0.8) K/mm3 Basophils # (Manual) (0.0-0.1) K/mm3 POC Glucose 253 H (70-105) Assessment and Plan Cultures: none Assessment: 58 y/o male with history of diabetes, hypertension, peripheral neuropathy and coronary artery disease admitted on 08/23/2019 due to abnormal labs - white count of 27,000: 1) Leukocytosis and thombocytosis of unclear etiology: patient is asymptomatic except for chronic left arm/axilla/scapular pain. There is a left axillary inclusion cyst that is not infected. Ua negative. 2) Chronic left arm/axilla/scapular pain: he fell down 3 months ago and injured his left arm with a large bruise, since then he has been complaining of left up per arm pain for the last 3 months. Pain is burning and 6 of 10 radiates to the axilla and scapular area and does not improve with pain meds. Recs: obtain CXR and CT abdomen and pelvis obtain blood cultures CRP hold off abx hem consult may need cervical/thoracic MRI ? Will follow. Thanks for consultation Liana Lim MD Infectious Diseases Graduate Assistant Athletic Trainer [facility] M [phone] O [phone]
[2019-08-25 11:46] LABS: Iron 46 ug/dL (49-181); Total Iron Binding Capacity 244 mcg/dL (250-450)
[2019-08-25] MEDS: INSULIN LISPRO 100 UNIT/ML SUB-Q SCH ×3 (13:20→21:15)
--- NOTE | 2019-08-25 13:26 | XRay Report ---
CHEST 2 VIEWS INDICATION / CLINICAL INFORMATION: Leukocytosis of unknown etiology. Possible mass versus pneumonia. COMPARISON: None available. FINDINGS: SUPPORT DEVICES: None. HEART / MEDIASTINUM: Cardiac size is normal with sternotomy changes. LUNGS / PLEURA: There is left upper lobe atelectasis. Mild right apical scarring is also seen. The pravin ngs are otherwise clear. No significant pleural effusion or pneumothorax. ADDITIONAL FINDINGS: No significant additional findings. IMPRESSION: Left upper lobe atelectasis without an additional acute abnormality of the chest. Signer Name: Oj Mejia MD Signed: 08/25/2019 1:22 PM Workstation Name: [id number]
--- NOTE | 2019-08-25 13:55 | Progress Note ---
Assessment and Plan - Patient Problems (1) Hyperglycemia Current Visit: Yes Status: Acute Plan to address problem: Patient hyperglycemia now had 2 episodes of hypoglycemia. Patient was on home insulin of 80 mg 7030 twice a day we'll hold insulin and decreased to 60 units twice a day and titrate up accordingly. (2) Hyperosmolar non-ketotic state in patient with type 2 diabetes mellitus Current Visit: Yes Status: Acute Plan to address problem: Longer in nonketotic state. Patient receiving insulin 80 units twice a day of 7030 follow accordingly. (3) Hyponatremia Current Visit: Yes Status: Acute Plan to address problem: Hyponatremia secondary to hyperglycemia. (4) Coronary artery disease Current Visit: Yes Status: Chronic Qualifiers: Coronary Disease-Associated Artery/Lesion type: [place] artery [place] vs. transplanted heart: [place] heart Plan to address problem: Present patient remains chest pain-free. (5) Leukocytosis, unspecified Current Visit: Yes Status: Chronic Plan to address problem: Patient with continued leukocytosis. No clear evidence of infection. Await any recommendations from hematology oncology. (6) Leukocytosis Current Visit: Yes Status: Acute (7) Neck pain Current Visit: Yes Status: Acute Plan to address problem: Still complains of leg left arm burning sensation pain. Agree with cervical MRI. Can obtain that tomorrow. We'll obtain radiographs today. History Interval history: Patient Hospital course complicated by hypoglycemia symptomatic blood glucose was running into the 40s. At present patient feels better follow-up Accu-Chek 189. Hospitalist Physical - Constitutional Vitals: Temp Pulse Resp BP Pulse Ox 98.1 F 75 18 128/63 96 08/25/19 11:33 08/25/19 11:33 08/25/19 11:33 08/25/19 11:33 08/25/19 11:33 General appearance: Present: no acute distress, well-nourished - EENT Eyes: Present: PERRL, EOM intact ENT: hearing intact, clear oral mucosa, dentition normal - Neck Neck: Present: supple, normal ROM - Respiratory Respiratory effort: normal Respiratory: bilateral: CTA - Cardiovascular Rhythm: regularly irregular - Extremities Extremities: no ischemia, pulses intact, pulses symmetrical, No edema, normal temperature - Abdominal General gastrointestinal: soft, non-tender, non-distended, normal bowel sounds, no hepatomegaly, no splenomegaly - Integumentary Integumentary: Present: clear, warm, dry - Psychiatric Psychiatric: appropriate mood/affect, intact judgment & insight, memory intact - Neurologic Neurologic: CNII-XII intact, moves all extremities Results - Labs CBC & Chem 7: 08/24/19 06:37 08/24/19 06:37 Labs: Laboratory Last Values WBC 28.0 K/mm3 (4.5-11.0) H 08/24/19 06:37 RBC 3.74 M/mm3 (3.65-5.03) 08/24/19 06:37 Hgb 12.6 gm/dl (11.8-15.2) 08/24/19 06:37 Hct 36.7 % (35.5-45.6) 08/24/19 06:37 MCV 98 fl (84-94) H 08/24/19 06:37 MCH 34 pg (28-32) H 08/24/19 06:37 MCHC 34 % (32-34) 08/24/19 06:37 RDW 15.4 % (13.2-15.2) H 08/24/19 06:37 Plt Count 657 K/mm3 (140-440) H 08/24/19 06:37 Lymph % (Auto) Manifest Clerk 08/24/19 06:37 [facility] % (Auto) Manifest Clerk 08/24/19 06:37 Eos % (Auto) Manifest Clerk 08/24/19 06:37 Baso % (Auto) Manifest Clerk 08/24/19 06:37 Lymph # Manifest Clerk 08/24/19 06:37 [facility] # Manifest Clerk 08/24/19 06:37 Eos # Manifest Clerk 08/24/19 06:37 Baso # Manifest Clerk 08/24/19 06:37 Add Manual Diff Complete 08/24/19 06:37 Total Counted 100 08/24/19 06:37 Seg Neutrophils % Manifest Clerk 08/24/19 06:37 Seg Neuts % (Manual) 89.0 % (40.0-70.0) H 08/24/19 06:37 Band Neutrophils % 0 % 08/24/19 06:37 Lymphocytes % (Manual) 5.0 % (13.4-35.0) L 08/24/19 06:37 Reactive Lymphs % (Man) 0 % 08/24/19 06:37 Monocytes % (Manual) 5.0 % (0.0-7.3) 08/24/19 06:37 Eosinophils % (Manual) 0 % (0.0-4.3) 08/24/19 06:37 Basophils % (Manual) 1.0 % (0.0-1.8) 08/24/19 06:37 Metamyelocytes % 0 % 08/24/19 06:37 Myelocytes % 0 % 08/24/19 06:37 Promyelocytes % 0 % 08/24/19 06:37 Blast Cells % 0 % 08/24/19 06:37 Nucleated RBC % Not Reportable 08/24/19 06:37 Seg Neutrophils # Manifest Clerk 08/24/19 06:37 Seg Neutrophils # Man 24.9 K/mm3 (1.8-7.7) H 08/24/19 06:37 Band Neutrophils # 0.0 K/mm3 08/24/19 06:37 Lymphocytes # (Manual) 1.4 K/mm3 (1.2-5.4) 08/24/19 06:37 Abs React Lymphs (Man) 0.0 K/mm3 08/24/19 06:37 Monocytes # (Manual) 1.4 K/mm3 (0.0-0.8) H 08/24/19 06:37 Eosinophils # (Manual) 0.0 K/mm3 (0.0-0.4) 08/24/19 06:37 Basophils # (Manual) 0.3 K/mm3 (0.0-0.1) H 08/24/19 06:37 Metamyelocytes # 0.0 K/mm3 08/24/19 06:37 Myelocytes # 0.0 K/mm3 08/24/19 06:37 Promyelocytes # 0.0 K/mm3 08/24/19 06:37 Blast Cells # 0.0 K/mm3 08/24/19 06:37 WBC Morphology Not Reportable 08/24/19 06:37 Hypersegmented Neuts Not Reportable 08/24/19 06:37 Hyposegmented Neuts Not Reportable 08/24/19 06:37 Hypogranular Neuts Not Reportable 08/24/19 06:37 Smudge Cells Not Reportable 08/24/19 06:37 Toxic Granulation Not Reportable 08/24/19 06:37 Toxic Vacuolation Not Reportable 08/24/19 06:37 Dohle Bodies Not Reportable 08/24/19 06:37 Pelger-Huet Anomaly Not Reportable 08/24/19 06:37 Matti Rods Not Reportable 08/24/19 06:37 Platelet Estimate Consistent w auto 08/24/19 06:37 Clumped Platelets Not Reportable 08/24/19 06:37 Plt Clumps, EDTA Not Reportable 08/24/19 06:37 Large Platelets Not Reportable 08/24/19 06:37 Giant Platelets Not Reportable 08/24/19 06:37 Platelet Satelliting Not Reportable 08/24/19 06:37 Plt Morphology Comment Not Reportable 08/24/19 06:37 RBC Morphology Not Reportable 08/24/19 06:37 Dimorphic RBCs Not Reportable 08/24/19 06:37 Polychromasia Not Reportable 08/24/19 06:37 Hypochromasia Not Reportable 08/24/19 06:37 Poikilocytosis Not Reportable 08/24/19 06:37 Anisocytosis Few 08/24/19 06:37 Microcytosis Not Reportable 08/24/19 06:37 Macrocytosis Few 08/24/19 06:37 Spherocytes Not Reportable 08/24/19 06:37 Pappenheimer Bodies Not Reportable 08/24/19 06:37 Sickle Cells Not Reportable 08/24/19 06:37 Target Cells Not Reportable 08/24/19 06:37 Tear Drop Cells Not Reportable 08/24/19 06:37 Ovalocytes Not Reportable 08/24/19 06:37 Helmet Cells Not Reportable 08/24/19 06:37 [place] Bodies Not Reportable 08/24/19 06:37 S[place]abe Rings Not Reportable 08/24/19 06:37 [place] Cells Not Reportable 08/24/19 06:37 Bite Cells Not Reportable 08/24/19 06:37 Crenated Cell Not Reportable 08/24/19 06:37 Elliptocytes Not Reportable 08/24/19 06:37 Acanthocytes (Spur) Not Reportable 08/24/19 06:37 Rouleaux Not Reportable 08/24/19 06:37 Hemoglobin C Crystals Not Reportable 08/24/19 06:37 Schistocytes Not Reportable 08/24/19 06:37 Malaria parasites Not Reportable 08/24/19 06:37 Timo Bodies Not Reportable 08/24/19 06:37 Hem Pathologist Commnt No 08/24/19 06:37 Sodium 124 mmol/L (137-145) L 08/24/19 06:37 Potassium 4.5 mmol/L (3.6-5.0) 08/24/19 06:37 Chloride 87.7 mmol/L (98-107) L 08/24/19 06:37 Carbon Dioxide 20 mmol/L (22-30) L 08/24/19 06:37 Anion Gap 21 mmol/L 08/24/19 06:37 BUN 8 mg/dL (9-20) L 08/24/19 06:37 Creatinine 0.5 mg/dL (0.8-1.5) L 08/24/19 06:37 Estimated GFR > 60 ml/min 08/24/19 06:37 BUN/Creatinine Ratio 16 % 08/24/19 06:37 Glucose 302 mg/dL (75-100) H 08/24/19 06:37 POC Glucose 278 (70-105) H 08/25/19 11:13 Hemoglobin A1c 8.4 % (4-6) H 08/23/19 17:59 Uric Acid 3.2 mg/dL (3.5-7.6) L 08/23/19 12:30 Calcium 8.5 mg/dL (8.4-10.2) 08/24/19 06:37 Iron 46 ug/dL (49-181) L 08/25/19 11:00 TIBC 244 mcg/dL (250-450) L 08/25/19 11:00 Ferritin 409.5 ng/mL (13.0-400.0) H 08/25/19 11:00 Total Bilirubin 0.40 mg/dL (0.1-1.2) 08/24/19 06:37 AST 15 units/L (5-40) 08/24/19 06:37 ALT 34 units/L (7-56) 08/24/19 06:37 Alkaline Phosphatase 202 units/L (35-129) H 08/24/19 06:37 Lactate Dehydrogenase 194 units/L (91-180) H 08/23/19 12:30 Total Protein 6.7 g/dL (6.3-8.2) 08/24/19 06:37 Albumin 3.4 g/dL (3.9-5) L 08/24/19 06:37 Albumin/Globulin Ratio 1.0 % 08/24/19 06:37 Vitamin B12 1426 pg/mL (211-911) H 08/25/19 11:00 Folate 17.38 ng/mL (7.3-26.0) 08/25/19 11:00 Urine Color Yellow (Yellow) 08/23/19 15:02 Urine Turbidity Clear (Clear) 08/23/19 15:02 Urine pH 5.0 (5.0-7.0) 08/23/19 15:02 Ur Specific [place] 1.022 (1.003-1.030) 08/23/19 15:02 Urine Protein <15 mg/dl mg/dL (Negative) 08/23/19 15:02 Urine Glucose (UA) >=500 mg/dL (Negative) 08/23/19 15:02 Urine Ketones 80 mg/dL (Negative) 08/23/19 15:02 Urine Blood Neg (Negative) 08/23/19 15:02 Urine Nitrite Neg (Negative) 08/23/19 15:02 Urine Bilirubin Neg (Negative) 08/23/19 15:02 Urine Urobilinogen < 2.0 mg/dL (<2.0) 08/23/19 15:02 Ur Leukocyte Esterase Neg (Negative) 08/23/19 15:02 Urine WBC (Auto) 1.0 /HPF (0.0-6.0) 08/23/19 15:02 Urine RBC (Auto) 4.0 /HPF (0.0-6.0) 08/23/19 15:02 U Epithel Cells (Auto) < 1.0 /HPF (0-13.0) 08/23/19 15:02 Hyaline Casts 2 /LPF 08/23/19 15:02 Active Medications - Current Medications Current Medications: Generic Name Dose Route Start Last Admin Trade Name Freq PRN Reason Stop Dose Admin Acetaminophen 650 mg 08/23/19 17:58 Tylenol PO Q4H PRN Pain MILD(1-3)/Fever >100.5/LOPEZ Aspirin 81 mg 08/23/19 19:00 08/25/19 09:42 Baby Aspirin PO 81 mg QDAY MARIBEL Administration Clopidogrel Bisulfate 75 mg 08/23/19 19:00 08/25/19 09:42 Plavix PO 75 mg QDAY MARIBEL Administration Dextrose 50 ml 08/25/19 09:28 D50w (25gm) Syringe IV Q30MIN PRN Hypoglycemia Protocol Gabapentin 300 mg 08/23/19 20:00 08/25/19 13:24 Gabapentin PO 300 mg TID MARIBEL Administration Heparin Sodium (Porcine) 5,000 unit 08/24/19 10:00 08/25/19 09:42 Heparin SUB-Q 5,000 unit Q12HR MARIBEL Administration Hydromorphone HCl 0.5 mg 08/23/19 17:59 08/25/19 03:50 Dilaudid IV 0.5 mg Q3H PRN Administration Pain , Severe (7-10) Ceftriaxone Sodium 2 gm in 100 mls @ 200 mls/hr 08/23/19 21:00 08/24/19 21:11 Rocephin/Ns 2 Gm/100 Ml IV 200 mls/hr Q24H MARIBEL Administration Protocol Insulin Human Isoph/Insulin Regular 60 unit 08/25/19 17:00 Humulin 70/30 SUB-Q BIDDIAB [facility] Insulin Human Lispro 0 unit 08/25/19 11:30 08/25/19 13:20 Humalog SUB-Q 4 unit ACHS MARIBEL Administration Protocol Metoprolol Tartrate 50 mg 08/23/19 22:00 08/25/19 09:49 Metoprolol PO 50 mg BID MARIBEL Administration Ondansetron HCl 4 mg 08/23/19 17:58 Zofran IV Q8H PRN Nausea And Vomiting Oxycodone/Acetaminophen 1 tab 08/23/19 17:59 08/25/19 13:28 Percocet 5/325 PO 1 tab Q6H PRN Administration Pain, Moderate (4-6) Sodium Chloride 10 ml 08/23/19 22:00 08/25/19 09:43 Sodium Chloride Flush Syringe 10 Ml IV 10 ml BID MARIBEL Administration Sodium Chloride 10 ml 08/23/19 17:58 Sodium Chloride Flush Syringe 10 Ml IV PRN PRN LINE FLUSH
--- NOTE | 2019-08-25 14:11 | Cat Scan Report ---
CT ABDOMEN AND PELVIS WITH CONTRAST INDICATION: Severe leukocytosis of unknown etiology. Possible mass. COMPARISON: No relevant prior imaging study available. TECHNIQUE: Axial, coronal and sagittal CT imaging of the abdomen and pelvis was performed after inje ction of 100 mL Omnipaque [address] scans at this location are performed using CT dose re duction for ALARA by means of automated exposure control. FINDINGS: LOWER CHEST: There is mild bibasilar atelectasis with a trace left pleural effusion. No additional si gnificant abnormality is seen. LIVER: No significant abnormality. BILIARY: No significant abnormality. PANCREAS: No significant abnormality. SPLEEN: No significant abnormality. ADRENALS: No significant abnormality. KIDNEYS AND URETERS: No significant abnormality. GI TRACT: There is a small hiatal hernia without associated inflammation. No additional significant a bnormality is seen along the stomach. No significant abnormality is seen along the small bowel or col on. The appendix is unremarkable. PERITONEUM: No free fluid. No free air. No fluid collection. LYMPH NODES: No significant adenopathy. VASCULATURE: The aorta is normal in caliber with moderate generalized atherosclerosis. URINARY BLADDER: No significant abnormality. REPRODUCTIVE ORGANS: No significant abnormality. ADDITIONAL FINDINGS: There is symmetric bilateral calcified infiltration of the subcutaneous tissues along the lower abdomen on image 97 of series 2. These findings could represent sequela of prior trau ma or surgery. There is more tumors or less likely consideration. SKELETAL SYSTEM: Osteopenia is seen with mild degenerative changes of the spine. No acute abnormality is noted. IMPRESSION: 1. No acute abnormality of the abdomen or pelvis. 2. Abnormalities in the lower abdominal wall as discussed above. Please correlate with the patient's history and clinical findings. Correlation with prior imaging of the abdomen would be helpful to dete rmine the stability of these findings. Signer Name: Oj Mejia MD Signed: 08/25/2019 2:07 PM Workstation Name: [email or web address]
--- NOTE | 2019-08-25 15:01 | XRay Report ---
CERVICAL SPINE 4 VIEWS INDICATION: Neck pain. Left arm pain. COMPARISON: No relevant prior imaging study available. FINDINGS: VERTEBRAE: There is generalized osteopenia with exaggeration of the cervical lordosis. No acute fract ure is seen. DISC SPACES: No significant abnormality. FACET JOINTS: No significant abnormality. SOFT TISSUES: No acute abnormality is seen. There is biapical scarring. ADDITIONAL FINDINGS: No additional significant findings. IMPRESSION: No acute abnormality of the cervical spine. Signer Name: Oj Mejia MD Signed: 08/25/2019 2:57 PM Workstation Name: [id number]
--- NOTE | 2019-08-25 15:04 | XRay Report ---
LEFT SHOULDER 3 VIEWS LEFT HUMERUS 3 VIEWS INDICATION / CLINICAL INFORMATION: Left arm pain. COMPARISON: None available. FINDINGS: BONES and JOINT(S): No acute fracture or subluxation. No significant arthritis. There is generalized osteopenia. SOFT TISSUES: No significant abnormality. ADDITIONAL FINDINGS: None. IMPRESSION: No acute abnormality of the left shoulder or humerus. Signer Name: Oj Mejia MD Signed: 08/25/2019 2:59 PM Workstation Name: [id number]
[2019-08-25] MEDS: cefTRIAXone/NS 2 GM/100 ML 2 GM/100 ML BAG IV SCH (20:41)
[2019-08-26] MEDS: oxyCODONE /ACETAMINOPHEN 5-325MG TAB PO PRN ×2 (04:29→12:08)
[2019-08-26] MEDS: INSULIN LISPRO 100 UNIT/ML SUB-Q SCH ×2 (07:56→12:09)
--- NOTE | 2019-08-26 07:56 | Hem/Onc Progress Note ---
Assessment and Plan 1. Leukocytosis, predominant neutrophils. This could be reactive. He has history of smoking. Previous stain will guide us. Present smear does not mention any metamyelocytes, myelocytes, or promyelocytes. 2. MCV elevated at 98. 3. Platelet count is high. 4. deficiency investigation and follow the patient in the outpatient setting. 5. Left hand triceps area pain, cause unclear. 6. History of diabetes. 7. History of hyponatremia. 8. Metabolic acidosis. d/w pt reg the high wbc - smear d/w dr Santana Op follow up an option d/w pt reg MAGDA - Patient Problems (1) Leukocytosis Status: Acute Subjective Date of service: 08/26/19 Principal diagnosis: leukocytosis - thrombocytosis Interval history: no fever - no bleeding Objective - Exam Narrative Exam: Pain - none General appearance - stable - no distress Performance status limited self care Eyes - no icterus ENT - hard of hearing LNs cervical not palpable Neck - no LN Respiratory Normal Breath sounds - CTA anteriorly CVS S1 S2 + Extremities no edema General GI Soft Rectal deferred male - deferred Skin warm Musculoskeletal - moving limbs Neurologically alert awake - Constitutional Vitals: Last Vital Signs Temp 98.4 F 08/26/19 05:15 Pulse 79 08/26/19 05:15 Resp 20 08/26/19 05:15 BP 111/53 08/26/19 05:15 Pulse Ox 94 08/26/19 05:15 - Labs Lab Results: Laboratory Results - last 24 hr 08/25/19 08/25/19 08/25/19 08:19 11:00 11:00 POC Glucose 253 H Iron 46 L TIBC 244 L Ferritin 409.5 H C-Reactive Protein Vitamin B12 Folate 08/25/19 08/25/19 08/25/19 11:00 11:00 11:13 POC Glucose 278 H Iron TIBC Ferritin C-Reactive Protein Vitamin B12 1426 H Folate 17.38 08/25/19 08/25/19 08/25/19 13:30 16:25 21:02 POC Glucose 338 H 176 H Iron TIBC Ferritin C-Reactive Protein 4.90 H Vitamin B12 Folate 08/26/19 07:45 POC Glucose < 40 L Iron TIBC Ferritin C-Reactive Protein Vitamin B12 Folate Medications & Allergies - Medications Allergies/Adverse Reactions: Allergies Egotdty-Txu-Zom Reductase Inhibitor Adverse Reaction (Verified 08/23/19 12:15) Unknown Home Medications: Home Medications Medication Instructions Recorded Confirmed Last Taken Type Aspirin [Aspirin BABY CHEW TAB] 81 mg PO QDAY 08/23/19 08/23/19 Unknown History Clopidogrel [Plavix] 75 mg PO QDAY 08/23/19 08/23/19 Unknown History Insulin Detemir 100 units IM BID 08/23/19 08/23/19 Unknown History Insulin NPH Human Isophane 100 units IM BID 08/23/19 08/23/19 Unknown History Insulin Regular, Human 100 units IM TID 08/23/19 08/23/19 Unknown History Nitroglycerin 0.6 mg SUBLINGUAL PRN 08/23/19 08/23/19 Unknown History Acetaminophen [Acetaminophen TAB] 650 mg PO Q4H PRN tablet 08/26/19 Unknown Rx Gabapentin 300 mg PO TID #30 capsule 08/26/19 Unknown Rx Gabapentin 300 mg PO TID #90 08/26/19 Unknown Rx Insulin NPH/Regular [NovoLIN 70/30] 35 unit SUB-Q QPMDIAB #14 units 08/26/19 Unknown Rx Insulin NPH/Regular [NovoLIN 70/30] 50 unit SUB-Q QDDIAB units 08/26/19 Unknown Rx Metoprolol Tartrate 50 mg PO BID #60 08/26/19 Unknown Rx Metoprolol [Lopressor TAB] 50 mg PO BID #30 tablet 08/26/19 Unknown Rx oxyCODONE /ACETAMINOPHEN [Percocet 7.5 tab PO Q6H PRN #60 tablet 08/26/19 Un known Rx 5/325 mg] Active Medications: Generic Name Dose Route Start Last Admin Trade Name Neoq PRN Reason Stop Dose Admin Acetaminophen 650 mg 08/23/19 17:58 Tylenol PO Q4H PRN Pain MILD(1-3)/Fever >100.5/LOPEZ Aspirin 81 mg 08/23/19 19:00 08/25/19 09:42 Baby Aspirin PO 81 mg QDAY MARIBEL Administration Clopidogrel Bisulfate 75 mg 08/23/19 19:00 08/25/19 09:42 Plavix PO 75 mg QDAY MARIBEL Administration Dextrose 50 ml 08/25/19 09:28 D50w (25gm) Syringe IV Q30MIN PRN Hypoglycemia Protocol Gabapentin 300 mg 08/23/19 20:00 08/25/19 20:40 Gabapentin PO 300 mg TID MARIBEL Administration Heparin Sodium (Porcine) 5,000 unit 08/24/19 10:00 08/25/19 21:17 Heparin SUB-Q 5,000 unit Q12HR MARIBEL Administration Hydromorphone HCl 0.5 mg 08/23/19 17:59 08/25/19 20:56 Dilaudid IV 0.5 mg Q3H PRN Administration Pain , Severe (7-10) Ceftriaxone Sodium 2 gm in 100 mls @ 200 mls/hr 08/23/19 21:00 08/25/19 20:41 Rocephin/Ns 2 Gm/100 Ml IV 200 mls/hr Q24H MARIBEL Administration Protocol Insulin Human Isoph/Insulin Regular 60 unit 08/25/19 17:00 08/25/19 16:31 Humulin 70/30 SUB-Q 60 unit BIDDIAB MARIBEL Administration Insulin Human Lispro 0 unit 08/25/19 11:30 08/25/19 21:15 Humalog SUB-Q 2 unit ACHS MARIBEL Administration Protocol Metoprolol Tartrate 50 mg 08/23/19 22:00 08/25/19 21:15 Metoprolol PO 50 mg BID MARIBEL Administration Ondansetron HCl 4 mg 08/23/19 17:58 Zofran IV Q8H PRN Nausea And Vomiting Oxycodone/Acetaminophen 1 tab 08/23/19 17:59 08/26/19 04:29 Percocet 5/325 PO 1 tab Q6H PRN Administration Pain, Moderate (4-6) Sodium Chloride 10 ml 08/23/19 22:00 08/25/19 22:15 Sodium Chloride Flush Syringe 10 Ml IV 10 ml BID MARIBEL Administration Sodium Chloride 10 ml 08/23/19 17:58 Sodium Chloride Flush Syringe 10 Ml IV PRN PRN LINE FLUSH
[2019-08-26] MEDS: HEPARIN 5,000 UNIT/1 ML VIAL SUB-Q SCH (09:18)
[2019-08-26] MEDS: ASPIRIN 81 MG TAB CHEW PO SCH (09:18)
[2019-08-26] MEDS: METOPROLOL TARTRATE 50 MG TAB PO SCH (09:18)
[2019-08-26] MEDS: CLOPIDOGREL 75 MG TAB PO SCH (09:18)
[2019-08-26] MEDS: GABAPENTIN 300 MG CAP PO SCH ×2 (09:18→14:42)
[2019-08-26] MEDS ORDERED: INSULIN NPH/REGULAR 70/30 INJ SUB-Q STA (09:27)
[2019-08-26] MEDS: INSULIN NPH/REGULAR 70/30 INJ SUB-Q SCH (09:30)
[2019-08-26 10:46] LABS: Hemoglobin 11.6 gm/dl (11.8-15.2); Mean Corpuscular HGB Conc 34 % (32-34); Mean Corpuscular Volume 97 fl (84-94); Platelet Count 632 K/mm3 (140-440); Red Cell Distribution Width 14.9 % (13.2-15.2)
--- NOTE | 2019-08-26 11:01 | Progress Note ---
Assessment and Plan Cultures: blood culture 08/25/19 - pending Assessment: 58 y/o male with history of diabetes, hypertension, peripheral neuropathy and coronary artery disease admitted on 08/23/2019 due to abnormal labs - white count of 27,000: 1) Leukocytosis and thombocytosis of unclear etiology: patient is asymptomatic except for chronic left arm/axilla/scapular pain. There is a left axillary inclusion cyst that is not infected. Ua negative. 2) Chronic left arm/axilla/scapular pain: he fell down 3 months ago and injured his left arm with a large bruise, since then he has been complaining of left upper arm pain for the last 3 months. Pain is burning and 6 of 10 radiates to the axilla and scapular area and does not improve with pain meds. Recs: Imaging without acute infective focus. CRP Currently on ceftriaxone; leukocytosis improving. Continue for now. Will follow. Thanks for consultation [facility] ([facility]) M: [phone] O: [phone] F: [phone] Subjective Date of service: 08/26/19 Interval history: Afebrile, elevated white count. Objective - Exam Narrative Exam: Constitutional: Alert, cooperative. No acute distress Head, Ears, Nose: Normocephalic, atraumatic. External ears, nose normal Eyes: Conjunctivae/corneas clear. No icterus. No ptosis. Neck: Supple, no meningeal signs Oral: dentition fair, no thrush Cardiovascular: S1, S2 normal. Respiratory: Good air entry, clear to auscultation bilaterally GI: Soft, non-tender Musculoskeletal: left arm/axilla/scapular tenderness Skin: left axilla cyst no erthema Hem/Lymphatic: No palpable cervical or supraclavicular nodes. No lymphangitis Psych: Mood ok. Affect normal Neurological: Awake, alert, oriented. paraplegic - Constitutional Vitals: Vital Signs Temp Pulse Resp BP Pulse Ox 98.4 F 79 20 111/53 94 08/26/19 05:15 08/26/19 05:15 08/26/19 05:15 08/26/19 05:15 08/26/19 05:15 Temperature -Last 24 Hours Temperature 98.4 F Temperature 98.5 F Temperature 97.8 F Temperature 98.1 F - Labs CBC & Chem 7: 08/26/19 10:22 08/24/19 06:37 Labs: Abnormal lab results 08/25/19 08/25/19 08/25/19 Range/Units 11:00 11:00 11:00 WBC (4.5-11.0) K/mm3 RBC (3.65-5.03) M/mm3 Hgb (11.8-15.2) gm/dl Hct (35.5-45.6) % MCV (84-94) fl MCH (28-32) pg Plt Count (140-440) K/mm3 POC Glucose (70-105) Iron 46 L (49-181) ug/dL TIBC 244 L (250-450) mcg/dL Ferritin 409.5 H (13.0-400.0) ng/mL C-Reactive Protein (0.00-1.30) mg/dL Vitamin B12 1426 H (211-911) pg/mL 08/25/19 08/25/19 08/25/19 Range/Units 11:13 13:30 16:25 WBC (4.5-11.0) K/mm3 RBC (3.65-5.03) M/mm3 Hgb (11.8-15.2) gm/dl Hct (35.5-45.6) % MCV (84-94) fl MCH (28-32) pg Plt Count (140-440) K/mm3 POC Glucose 278 H 338 H (70-105) Iron (49-181) ug/dL TIBC (250-450) mcg/dL Ferritin (13.0-400.0) ng/mL C-Reactive Protein 4.90 H (0.00-1.30) mg/dL Vitamin B12 (211-911) pg/mL 08/25/19 08/26/19 08/26/19 Range/Units 21:02 07:45 08:35 WBC (4.5-11.0) K/mm3 RBC (3.65-5.03) M/mm3 Hgb (11.8-15.2) gm/dl Hct (35.5-45.6) % MCV (84-94) fl MCH (28-32) pg Plt Count (140-440) K/mm3 POC Glucose 176 H < 40 L 189 H (70-105) Iron (49-181) ug/dL TIBC (250-450) mcg/dL Ferritin (13.0-400.0) ng/mL C-Reactive Protein (0.00-1.30) mg/dL Vitamin B12 (211-911) pg/mL 08/26/19 Range/Units 10:22 WBC 21.3 H (4.5-11.0) K/mm3 RBC 3.50 L (3.65-5.03) M/mm3 Hgb 11.6 L (11.8-15.2) gm/dl Hct 34.0 L (35.5-45.6) % MCV 97 H (84-94) fl MCH 33 H (28-32) pg Plt Count 632 H (140-440) K/mm3 POC Glucose (70-105) Iron (49-181) ug/dL TIBC (250-450) mcg/dL Ferritin (13.0-400.0) ng/mL C-Reactive Protein (0.00-1.30) mg/dL Vitamin B12 (211-911) pg/mL
[2019-08-26 12:04] LABS: Basophils % (Manual) 0 % (0.0-1.8); Total Cells Counted 100
[2019-08-26 12:05] LABS: Anisocytosis Few; Eosinophils % (Manual) 0 % (0.0-4.3); Platelet Estimate Consistent w Auto; Poikilocytosis Few; Target Cells Few
--- NOTE | 2019-08-26 13:25 | Discharge Summary ---
Providers - Providers Date of Admission: 08/23/19 17:35 Date of discharge: 08/26/19 Attending physician: MARCY WILLS 08/23/19 20:09 Consult to Physician [CONS] Routine Comment: Consulting Provider: MINOO SWARTZ Physician Instructions: Reason For Exam: leukocytosis 08/23/19 20:10 Consult to Physician [CONS] Routine Comment: Consulting Provider: LEIA FLOWERS Physician Instructions: Reason For Exam: leukocytosis Primary care physician: SURGICAL SCRUB TECHNOLOGIST Hospitalization Condition: Critical Hospital course: Patient presented for severe leukocytosis. The exact etiology was unknown. Leukocytosis worked up by infectious disease and hematology. No clear the allergy was obtained. Patient was stable to be discharged and be followed as outpatient with hematology oncology. Patient is being given Dr. Rocha number for further follow-up. May require biopsy of the bone. Patient also complained of some left shoulder pain patient stated he fell down several weeks ago and has had left shoulder pain. Patient states nothing has worked for him including Percocet. We obtain x-rays of the shoulder the neck cervical neck region arm hand all within normal limits. Appears just be soft tissue muscular skeletal in nature. Disposition: DC- TO HOME OR SELFCARE - Discharge Diagnoses (1) Hyperglycemia Status: Chronic Comment: improved (2) Hyperosmolar non-ketotic state in patient with type 2 diabetes mellitus Status: Resolved (3) Hyponatremia Status: Resolved (4) Coronary artery disease Status: Chronic Qualifiers: Coronary Disease-Associated Artery/Lesion type: [place] artery [place] vs. transplanted heart: [place] heart (5) Leukocytosis, unspecified Status: Chronic Comment: folow up as out patinet at [facility] for hematolgist (6) Leukocytosis Status: Acute (7) Neck pain Status: Resolved Core Measure Documentation - Palliative Care Palliative Care/ Comfort Measures: Not Applicable - Core Measures Any of the following diagnoses?: none Exam - Constitutional Vitals: Temp Pulse Resp BP Pulse Ox 98.4 F 79 20 111/53 94 08/26/19 05:15 08/26/19 05:15 08/26/19 05:15 08/26/19 05:15 08/26/19 05:15 General appearance: Present: no acute distress, well-nourished - EENT Eyes: Present: PERRL ENT: hearing intact, clear oral mucosa - Neck Neck: Present: supple, normal ROM - Respiratory Respiratory effort: normal Respiratory: bilateral: CTA - Cardiovascular Heart Sounds: Present: S1 & S2. Absent: rub, click - Extremities Extremities: pulses symmetrical, No edema Peripheral Pulses: within normal limits - Abdominal General gastrointestinal: Present: soft, non-tender, non-distended, normal bowel sounds Male genitourinary: Present: normal - Integumentary Integumentary: Present: clear, warm, dry - Musculoskeletal Musculoskeletal: gait normal, strength equal bilaterally - Psychiatric Psychiatric: appropriate mood/affect, intact judgment & insight - Neurologic Neurologic: CNII-XII intact, moves all extremities Plan Activity: no restrictions Diet: diabetic Follow up with: PRIMARY CARE, [Primary Care Provider] - 7 Days Prescriptions: Gabapentin 300 mg PO TID #30 capsule Gabapentin 300 mg PO TID #90 Metoprolol [Lopressor TAB] 50 mg PO BID #30 tablet Metoprolol Tartrate 50 mg PO BID #60 Insulin NPH/Regular [NovoLIN 70/30] 35 unit SUB-Q QPMDIAB #14 units oxyCODONE /ACETAMINOPHEN [Percocet 5/325 mg] 7.5 tab PO Q6H PRN #60 tablet PRN Reason: Pain, Moderate (4-6)
[2019-08-26] MEDS ORDERED: INSULIN NPH/REGULAR 70/30 INJ SUB-Q SCH (17:00)
[2019-08-26 18:22] VITALS: BP 136/75
[2019-08-27] MEDS ORDERED: INSULIN NPH/REGULAR 70/30 INJ SUB-Q SCH (08:00)
== END 2019-08-26 18:34 | disposition home or self-care (01) | DRG 638 ==
LOC: ED 12:14 → 3A 17:35
PROVIDERS: ADMIT Internal Medicine; ATTEND Internal Medicine
DX: E11.00 Type 2 diabetes mellitus with hyperosmolarity without nonketotic hyperglycemic-hyperosmolar coma (NKHHC) (principal); E87.2 Acidosis; E87.1 Hypo-osmolality and hyponatremia; S40.022A Contusion of left upper arm, initial encounter; W18.39XA Other fall on same level, initial encounter; D72.829 Elevated white blood cell count, unspecified; I25.10 Atherosclerotic heart disease of native coronary artery without angina pectoris; G89.29 Other chronic pain; E11.42 Type 2 diabetes mellitus with diabetic polyneuropathy; Z79.82 Long term (current) use of aspirin; Z79.899 Other long term (current) drug therapy; Z79.4 Long term (current) use of insulin; Z88.8 Allergy status to other drugs, medicaments and biological substances; Y93.89 Activity, other specified; Y92.098 Other place in other non-institutional residence as the place of occurrence of the external cause; Y99.8 Other external cause status
CPT/HCPCS: 36415; 71046; 72040; 74177; 80053; 81001; 82607; 82728; 82747; 82947; 82962; 83036; 83550; 83615; 84550; 85007; 85025; 86140; 87040; 87116; G0378; J0696; J1170; J1644; J1815; J7030; Q9967